=== PATIENT | female | born 1950 | race African-American/Black ===

== ENCOUNTER 2018-01-20 08:09 | Emergency (ER) | payer MEDICARE, OTHER ==
[~2018-01-20] VITALS: Ht 162.6 cm; Wt 72.0 kg
[~2018-01-20 08:09] MED LIST: ALBU8.5H8 IH; CLOP75 PO; DSS100 PO; FERR-89 PO; FOLI1 PO; ISOS30TA6 PO; LORA1TAB3 PO; LOSA25TA21 PO; METO25 PO; OXYC-43 PO; PANT40TA25 PO
[2018-01-20] MEDS ORDERED: GABA-531 PO (08:17)
[2018-01-20] MEDS ORDERED: FURO-152 PO (08:17)
[2018-01-20 10:36] VITALS: BP 146/87
== END 2018-01-20 10:56 | disposition home or self-care (01) ==
LOC: EMS 08:11
DX: M75.31 Calcific tendinitis of right shoulder (principal); I10 Essential (primary) hypertension; K21.9 Gastro-esophageal reflux disease without esophagitis; Z88.0 Allergy status to penicillin; Z88.8 Allergy status to other drugs, medicaments and biological substances; V49.50XA Passenger injured in collision with unspecified motor vehicles in traffic accident, initial encounter; Y93.89 Activity, other specified; Y92.89 Other specified places as the place of occurrence of the external cause; Y99.8 Other external cause status
CPT/HCPCS: 99284

== ENCOUNTER 2018-06-27 10:11 | Emergency (ER) | payer MEDICARE ==
[~2018-06-27] VITALS: Ht 162.6 cm; Wt 81.8 kg
[~2018-06-27 10:11] MED LIST changes: +FURO-152 PO; +GABA-531 PO; -ISOS30TA6 PO; -LORA1TAB3 PO; -LOSA25TA21 PO; +LOSA25TA41 PO; -METO25 PO; -OXYC-43 PO
[2018-06-27] MEDS ORDERED: SODIUM CHLORIDE 0.9% 1,000 ML IV ONE (12:15)
[2018-06-27] MEDS ORDERED: FAMOTIDINE 10 MG/ML 2 ML VIAL IVP ONE (12:15)
[2018-06-27] MEDS ORDERED: METOCLOPRAMIDE HCL 5 MG/ML 2 ML VIAL IVP ONE (12:15)
[2018-06-27 12:44] LABS: BASOPHILS % (AUTO) 1.1 % (0.0-2.0); HEMATOCRIT 34.9 % (36-46); HEMOGLOBIN 10.9 g/dL (12.0-16.0); LYMPHOCYTES # (AUTO) 2.1 K/uL (1.0-4.8); MEAN CORPUSCULAR HEMOGLOBIN 25.2 pg (26.0-34.0); MEAN CORPUSCULAR HGB CONC 31.1 G/dL (31.0-37.0); MEAN CORPUSCULAR VOLUME 81 fL (80-100); MONOCYTES # (AUTO) 0.5 K/uL (0.1-1.0); MONOCYTES % (AUTO) 7.7 % (2.0-9.0); NEUTROPHILS # (AUTO) 3.6 K/uL (1.8-7.7); NEUTROPHILS % (AUTO) 56.2 % (40.0-70.0); PLATELET COUNT (AUTO) 259 K/uL (150-450); RED BLOOD CELL COUNT(AUTO) 4.31 MIL/uL (4.00-5.20); RED CELL DISTRIBUTION WIDTH 14.5 % (11.5-14.5)
[2018-06-27 12:47] LABS: ANION GAP 11 mmol/L (8-16); CALCIUM, TOTAL 9.4 mg/dL (8.8-10.5); CARBON DIOXIDE 29 mmol/L (22-29); CHLORIDE 98 mmol/L (98-107); CREATININE 0.86 mg/dL (0.60-1.30); GLOMERULAR FILTR. RATE CALC > 60 mL/min (>60); GLUCOSE,RANDOM 76 mg/dL (70-110); SODIUM SERUM 138 mmol/L (136-145); UREA NITROGEN, BLOOD 14 mg/dL (7-18)
[2018-06-27 12:54] LABS: ALANINE AMINOTRANSFERASE 21 U/L (12-78); ALBUMIN 3.2 g/dL (3.4-5.0); ALKALINE PHOSPHATASE 105 U/L (46-116); ASPARTATE AMINOTRANSFERASE 38 U/L (15-37); BILIRUBIN,TOTAL 0.5 mg/dL (0.1-1.0); LIPASE 93 U/L (73-393); TOTAL PROTEIN, SERUM 8.8 g/dL (6.4-8.2)
[2018-06-27 14:27] LABS: INR 1.1 (0.9-1.1); PROTHROMBIN TIME 11.9 SEC (9.4-11.6)
[2018-06-27] MEDS ORDERED: FURO40 PO (14:36)
[2018-06-27] MEDS ORDERED: PANTOPRAZOLE SODIUM 80 MG in SODIUM CHLORIDE 0.9% 100 ML IV SCH (14:45)
[2018-06-27] MEDS ORDERED: POTASSIUM CHL 10 MEQ/WATER 50 ML IV ONE (14:45)
[2018-06-27 18:15] VITALS: BP 142/91
== END 2018-06-27 18:44 | disposition short-term general hospital (02) ==
LOC: EMS 10:14
DX: K92.2 Gastrointestinal hemorrhage, unspecified (principal); E87.6 Hypokalemia; R11.2 Nausea with vomiting, unspecified; F10.20 Alcohol dependence, uncomplicated; K21.9 Gastro-esophageal reflux disease without esophagitis; I10 Essential (primary) hypertension; Z88.0 Allergy status to penicillin; Z88.8 Allergy status to other drugs, medicaments and biological substances; Y90.0 Blood alcohol level of less than 20 mg/100 ml
CPT/HCPCS: 36415; 74022; 80053; 83690; 84484; 85025; 85610; 85730; 86850; 86900; 86901; 93005; 96361; 96365; 96366; 96368; 96375; 99285; C9113; G0480; J2765; J3490; J7030; J7050

== ENCOUNTER 2019-07-09 20:02 | Emergency (ER) | payer MEDICARE ==
[~2019-07-09] VITALS: Ht 160 cm; Wt 81.8 kg
[~2019-07-09 20:02] MED LIST changes: -CLOP75 PO; +CLOP75TA3 PO; -FURO-152 PO; +FURO40 PO
[2019-07-09 22:35] LABS: APPEARANCE,URINE CLOUDY (CLEAR); GLUCOSE, URINE (UA) NEGATIVE (NEGATIVE); KETONES,URINE 15 mg/dL (NEGATIVE); LEUKOCYTE ESTERASE ,URINE LARGE (NEGATIVE); NITRATE,URINE NEGATIVE (NEGATIVE); OCCULT BLOOD,URINE LARGE (NEGATIVE); PROTEIN,URINE POS 1+ (NEGATIVE)
[2019-07-09] MEDS ORDERED: PHENAZOPYRIDINE HCL 100 MG TABLET PO ONE (22:45)
[2019-07-09 22:47] LABS: BILIRUBIN,URINE PRELIM. POSITIVE (NEGATIVE)
[2019-07-09 22:49] LABS: WBC,URINE >100 /HPF (0-5)
[2019-07-09 22:50] LABS: BACTERIA,URINE Moderate /HPF (None Seen); SQUAMOUS EPITHELIAL CELL,UR Many /LPF (None Seen)
[2019-07-09 23:00] VITALS: BP 152/94
[2019-07-09] MEDS ORDERED: SULFAMETHOX/TRIMETH DS 800-160 MG/TABLET PO ONE (23:00)
== END 2019-07-09 23:46 | disposition home or self-care (01) ==
LOC: EMS 20:52
DX: N39.0 Urinary tract infection, site not specified (principal); K21.9 Gastro-esophageal reflux disease without esophagitis; I10 Essential (primary) hypertension; Z90.89 Acquired absence of other organs; Z88.0 Allergy status to penicillin; Z88.8 Allergy status to other drugs, medicaments and biological substances
CPT/HCPCS: 51702; 87086